=== PATIENT | male | born 1980 | race Two or more races ===

== ENCOUNTER 2025-01-27 03:16 | Emergency (ER) | payer OTHER ==
[~2025-01-27] VITALS: Ht 182.9 cm; Wt 72.5 kg
[2025-01-27] MEDS ORDERED: AZIT-43 PO (03:42)
[2025-01-27] MEDS ORDERED: ALBUAER3 IN (03:42)
[2025-01-27] MEDS ORDERED: METH4PAK PO (03:42)
[2025-01-27] MEDS ORDERED: PROM1SOL4 PO (03:42)
--- NOTE | 2025-01-27 03:42 | ED.PDOC ---
SOB-HPI HPI Comments PT COMES WITH C/C OF COUGH, THROAT DISCOMORT AND MUCUS BUILD UP X 1 WEEK. LOOSING VOICE. REPORTS CHILLS, SUBJECTIVE FEVERS, DENIES SOS, CP OR LUCIEN. Chief Complaint: Cough Time Seen by MD: 03:22 Reviewed notes: Nurses Notes, Medications, Allergies Information Source: Patient Mode of Arrival: Ambulatory Past Medical History PAST MEDICAL HISTORY: Denies Surgical History: Denies all surgeries Family History Family History: Unknown Social History Smoker: Non-Smoker Alcohol: Denies ETOH Use Drugs: Denies Drug Use All Other Systems: Reviewed and Negative (SEE HPI) Physical Exam General Appearance: No Apparent Distress, Normal HEENT: Normal ENT Inspection, Pharynx Normal, TMs Normal Neck: Full Range of Motion, Non-Tender, Normal, Normal Inspection Respiratory: Lungs Clear, No Accessory Muscle Use, No Respiratory Distress, Normal Breath Sounds, Rhonchi Cardiovascular: No Edema, No JVD, No Murmur, No Gallop, Normal Peripheral Pu lses, Regular Rate/Rhythm Breast Exam: Deferred Gastrointestinal: Non Tender, Soft Genitalia: Deferred Pelvic: Deferred Rectal: Deferred Extremities: Normal capillary refill, Normal range of motion, No pedal edema Musculoskeletal : Apperance: Normal Neurologic: Alert, No Motor Deficits, Normal Affect, Normal Mood, No Sensory Deficits Cerebellar Function: Normal Reflexes: Normal Skin: Dry, Normal Color, Warm Lymphatic: No Adenopathy Was a procedure done? Was a procedure done?: No Differential Dx Differential Diagnosis: Asthma, Bronchitis, Pneumonia, Sinusitis, URI X-Ray, Labs, Meds, VS Vital Signs Date Time Temp Pulse Resp B/P (MAP) Pulse Ox O2 Delivery O2 Flow Rate FiO2 01/27/25 03:21 97.5 102 18 150/87 95 97.5 Time of 1ST Reevaluation: 03:22 Reevaluation 1ST: Unchanged Time of 2ND Reevaluation: 03:47 Reevaluation 2ND: Improved Patient Education/Counseling: Diagnosis, Treatment, Need For Follow Up Family Education/Counseling: No Family Present SEPSIS Sepsis Screen Date sepsis recognized/suspect: Jan 27, 2025 Time Sepsis recognized/suspect: 322 Recent Procedure: No On Antibiotic Therapy: No Respiratory Rate >20: No Heart Rate >90: No Temp<36 C (96.8 F) or >38.3 C: No SBP <90 or MAP <65 mmHG: No New Acute Mental Status Change: No Is the patient on CPAP, BIPAP,: No Physician Orders Azithromycin Tablet (Zithromax Tablet) (01/27/25 03:45) Vital Signs Date Time Temp Pulse Resp B/P (MAP) Pulse Ox O2 Delivery O2 Flow Rate FiO2 01/27/25 03:21 97.5 102 18 150/87 95 97.5 Departure 1 Departure Time of Disposition: 03:38 Impression: Primary Impression: Bronchitis Disposition: 01 HOME / SELF CARE / HOMELESS Condition: Stable e-Prescriptions Promethazine-Dm (Promethazine Dm 6.25-15 mg/5Ml) 1 Rosalina Rosalina 5 ML PO TID PRN for 6 Days, #90 ML Prov: MARSHA RIVERS 01/27/25 Albuterol Sulfate (VENTOLIN MDI) 90 Mcg Ih 90 MCG IN Q6HP PRN for 14 Days, #1 INHALER Prov: MARSHA RIVERS 01/27/25 Methylprednisolone (Medrol Dosepak) 4 Mg Mani 4 MG PO UD for 6 Days, #21 TAB UAD Prov: MARSHA RIVERS 01/27/25 Azithromycin (Azithromycin) 250 Mg Tab 250 MG PO DAILY MDD 500 for 5 Days, #6 TAB 0 Refills 2 TABLETS ORALLY ON DAY ONE, THEN 1 TABLET ORALLY DAILY FOR 4 DAYS Prov: MARSHA RIVERS 01/27/25 Discharged With: Self Critical Care Note Critical Care Time?: No Stability Stability form required: No Heart Score Heart Score: Heart Score Response (Comments) Value History N/A 0 EKG N/A 0 Age 45-64 1 Risk Factors N/A 0 Troponin N/A 0 Total 1 MARSHA RIVERS Jan 27, 2025 03:42
[2025-01-27 04:15] VITALS: BP 132/89; PULSE 107; RESP 20; TEMP 99.6; O2SAT 96
[2025-01-27] MEDS: AZITHROMYCIN 250 MG TAB PO ONE (04:18)
== END 2025-01-27 04:23 | disposition home or self-care (01) ==
LOC: ER 03:16
DX: J40 Bronchitis, not specified as acute or chronic (principal); Z79.899 Other long term (current) drug therapy